=== PATIENT | male | born 1935 | race Caucasian/White ===

== ENCOUNTER → 2017-01-09 | Outpatient (CLI) | payer MEDICARE, OTHER ==
[~2017-01-09] MED LIST: ALDA25TA2 PO; ASCO500T PO; ASPI1TAB PO; CORE12.5 PO; DEMA1TAB4 PO; ELIQ5TAB PO; FISH100049 PO; HYDR12.55 PO; HYDR25T PO; K-TA10TA2 PO; LANO0.1211 PO; LOSA25TA8 PO; TRAV04OPD OU; VITMTA PO; ZEST1TAB7 PO; ZOCO40TA PO
--- NOTE | 2017-01-09 12:46 | REP ---
Lower rib pain. No history of trauma. COMPARISON: Chest 11/30/2014. There is persistent elevation of the diaphragmatic surface of the right lung with blunting of the right CP angle status quo. There is no change in appearance of the lung rice. There is no evidence of an acute rib fracture or destructive osseous lesion. IMPRESSION: Chronic ling field changes suspected as described above. No evidence of rib fracture. Signed by Usman Jacinto DO 01/09/2017 02:09 P
== END ==
LOC: M LRY 11:50
PROVIDERS: ATTEND Physician Assistant
DX: R07.81 Pleurodynia (principal)
CPT/HCPCS: 71101; G0463